=== PATIENT | male | born 1970 | race Caucasian/White ===

== ENCOUNTER 2023-03-08 10:02 | Emergency (ER) | payer MEDICARE, MEDICAID, SELFPAY ==
--- NOTE | 2023-03-08 10:14 | ED.ABDPAIN ---
HPI - Abdominal Pain General Chief Complaint: Skin/Abscess/Foreign Body Stated Complaint: bump on left hip Time Seen by Provider: 03/08/23 10:14 Source: patient Mode of arrival: ambulatory Limitations: no limitations History of Present Illness HPI narrative: 52 yo M presents with red bump to L hip for 1 wk. tender, no itching. states lymph node to L groin now enlarged. No other complaints today. all systems reviewed and negative except as noted above. Related Data Home Medications Medication Instructions Recorded Confirmed clozapine 100 mg tablet mg 03/08/23 clozapine 50 mg tablet mg 03/08/23 fenofibrate nanocrystallized 48 mg mg PO 03/08/23 tablet insulin glargine 100 unit/mL (3 unit subcut 03/08/23 mL) subcutaneous pen (Lantus Solostar U-100 Insulin) pantoprazole 40 mg tablet,delayed mg PO 03/08/23 release paroxetine HCl 30 mg tablet mg PO 03/08/23 simvastatin 40 mg tablet mg 03/08/23 Allergies Allergy/AdvReac Type Severity Reaction Status Date / Time No Known Allergies Allergy Verified 03/08/23 10:15 Review of Systems Review of Systems: CONSTITUTIONAL: Denies fever, chills, or sweats. EYES: Denies visual changes, redness, or discharge. ENT: Denies rhinorrhea, congestion, sore throat, or otalgia. CARDIOVASCULAR: Denies chest pain, palpitations, or edema. RESPIRATORY: Denies cough or dyspnea. GASTROINTESTINAL: Denies abdominal pain, nausea, vomiting, or diarrhea. GENITOURINARY: Denies dysuria or hematuria. SKIN: Denies rash or itching. reports red, swollen bump to L hip. MUSCULOSKELETAL: Denies back pain, joint pain, or myalgia. NEUROLOGIC: Denies headache, numbness, or weakness. PSYCHIATRIC: Denies anxiety or depression. All other systems reviewed are negative, except as documented in HPI. PMFSH Comments At time of signature, agree with nursing past medical, surgical, social and family history. There is no relevant family history pertinent to the presenting complaint. Exam Narrative: GENERAL: This is a well-nourished, well-developed patient, in no apparent distress. HEAD: normocephalic, atraumatic. EYES: PERRL. Sclera clear/white. Vision is grossly intact. EARS: External ears normal NOSE: External nose normal NECK: Neck supple, non-tender without lymphadenopathy, masses or thyromegaly. CARDIOVASCULAR: Regular rate and rhythm without murmurs, gallops, or rubs. RESPIRATORY: Clear to auscultation. Breath sounds equal bilaterally. No wheezes, rales, or rhonchi. SKIN: warm, Dry, intact with no suspicious lesions or rash, good texture and turgor. raised erythematous lesion to L lateral hip and right anterior upper thigh. Approx. 2 cm diameter. no fluctuance or warmth. L inguinal lymph node enlarged, nontender NEURO: awake, alert, and oriented to person, place and time. There were no obvious focal neurologic abnormalities. EXTREMITIES: No joint tenderness, effusion, or edema noted. Course Course Level of Care: Express Care Visit Vital Signs Vital signs: Vital Signs Temperature 36.8 C 03/08/23 10:16 Pulse Rate 105 H 03/08/23 10:16 Respiratory Rate 18 03/08/23 10:16 Blood Pressure 117/79 03/08/23 10:16 Pulse Oximetry 97 03/08/23 10:16 Oxygen Delivery Room Air 03/08/23 10:16 Temperature 36.8 C 03/08/23 10:16 Pulse Rate 105 H 03/08/23 10:16 Respiratory Rate 18 03/08/23 10:16 Blood Pressure 117/79 03/08/23 10:16 Pulse Oximetry 97 03/08/23 10:16 Oxygen Delivery Room Air 03/08/23 10:16 Reviewed MDM - Abdominal Pain MDM Narrative Medical decision making narrative: Patient is aware of diagnosis, understands and agrees to treatment plan. Anticipatory guidance given. Patient agrees to follow-up as directed and is aware of reasons to seek care at the emergency department. Portions of this record may have been created with voice recognition software Discharge Plan Discharge Clinical Impression: Skin lesion, infected
[2023-03-08 10:16] VITALS: BP 117/79; PULSE 105; RESP 18; TEMP 36.8; O2SAT 97
== END 2023-03-08 10:29 | disposition home or self-care (01) ==
PROVIDERS: Emergency Provider Nurse Practitioner Family; PCP Internal Medicine
DX: L08.9 Local infection of the skin and subcutaneous tissue, unspecified (principal); L98.9 Disorder of the skin and subcutaneous tissue, unspecified; E78.00 Pure hypercholesterolemia, unspecified; K21.9 Gastro-esophageal reflux disease without esophagitis; E11.9 Type 2 diabetes mellitus without complications; L40.9 Psoriasis, unspecified; F17.200 Nicotine dependence, unspecified, uncomplicated
CPT/HCPCS: 99213; G0463

== ENCOUNTER 2023-05-02 09:17 | Emergency (ER) | payer MEDICARE, MEDICAID, SELFPAY ==
--- NOTE | 2023-05-02 09:20 | ED.MALEGU ---
HPI - Male Genitourinary General Chief complaint: Urogenital-Male Stated complaint: urinary issue Time Seen by Provider: 05/02/23 09:35 Source: patient, RN notes reviewed and old records reviewed Mode of arrival: ambulatory Limitations: no limitations History of Present Illness HPI Narrative: 52-year-old male with history of diabetes presents to the [facility] with suprapubic discomfort. Denies pain, burning with urination, penile discharge, testicular pain. Pain is not reproducible. Patient states ?I am worried about a urinary tract infection or bladder cancer. ? Patient it is has a family history of bladder cancer, explained to patient that is not something we can not rule out here. States he has an appointment next week with his primary care provider Patient is a diabetic, has not checked his blood sugars in several days. States he has been eating a lot of sweets lately Symptoms for 1 and half to 2 weeks Onset (ago): week(s) (1.5-2) Associated symptoms: Reports denies other symptoms Related Data Home Medications Medication Instructions Recorded Confirmed clozapine 100 mg tablet 100 mg PO DAILY 03/08/23 05/02/23 clozapine 50 mg tablet 50 mg PO DAILY 03/08/23 05/02/23 fenofibrate nanocrystallized 48 mg 48 mg PO DAILY 03/08/23 05/02/23 tablet insulin glargine 100 unit/mL (3 65 unit subcut DAILY 03/08/23 05/02/23 mL) subcutaneous pen (Lantus Solostar U-100 Insulin) pantoprazole 40 mg tablet,delayed 40 mg PO DAILY 03/08/23 05/02/23 release paroxetine HCl 30 mg tablet 30 mg PO DAILY 03/08/23 05/02/23 simvastatin 40 mg tablet 40 mg PO DAILY 03/08/23 05/02/23 Allergies Allergy/AdvReac Type Severity Reaction Status Date / Time No Known Allergies Allergy Verified 05/02/23 09:22 Review of Systems Review of Systems: All systems reviewed & are unremarkable except as noted in HPI and below Constitutional: Constitutional: Reports no additional constitutional complaints Eyes: Eyes: Reports no additional eye complaints ENT: Reports system reviewed and no additional complaints, except as documented Cardiovascular: Cardiovascular: Reports no additional cardiovascular complaints, Denies chest pain and Denies dyspnea Respiratory: Respiratory: Reports no additional respiratory complaints, Denies chest congestion, Denies cough and Denies dyspnea Gastrointestinal: Gastrointestinal: Reports as per HPI, Denies abdominal pain, Denies diarrhea, Denies nausea and Denies vomiting Genitourinary: Genitourinary: Reports no additional male genitourinary complaints Musculoskeletal: Musculoskeletal: Reports no additional musculoskeletal complaints Integumentary/Breasts: Skin/Breast: Reports system reviewed and no additional complaints, except as docu Neurologic: Reports system reviewed and no additional complaints, except as documented Psychiatric: Psychiatric: Reports no additional psychiatric complaints Allergic/Immunologic: Allergic/Immunologic: Reports no additional allergic/immunologic complaints PMFSH Comments At the time of my signature, I reviewed and agree with the nursing past medical, surgical, social, and family history. There is no relevant family history pertinent to the patient complaint. Exam Const: General: cooperative, healthy appearing, comfortable, no acute distress, well developed, alert and well nourished Nutritional Appearance: well nourished Orientation/consciousness: patient oriented x3 Limitations: no limitations HENMT: Head: normal to inspection Ears: hearing grossly normal bilaterally and external ears normal Face/Nose/Sinus: Normal external nose present, Normal nares present, Normal nasal mucous membranes and turbinates present, normal facial exam and face symmetric Face and sinus: normal facial exam and face symmetric Eyes: General: appearance normal, both eyes and all related structures Alignment and Position: alignment normal Periorbital: periorbital findings normal Pupils: Equal, round
[2023-05-02 09:33] VITALS: BP 121/77; PULSE 100; RESP 16; TEMP 37; O2SAT 99
[2023-05-02 10:02] LABS: Glucose Point of Care 330 mg/dl (65-105)
== END 2023-05-02 10:14 | disposition left against medical advice (07) ==
PROVIDERS: Emergency Provider Nurse Practitioner; PCP Internal Medicine
DX: E11.65 Type 2 diabetes mellitus with hyperglycemia (principal); R10.2 Pelvic and perineal pain; R35.0 Frequency of micturition; Z79.4 Long term (current) use of insulin; Z79.899 Other long term (current) drug therapy
CPT/HCPCS: 81003; 82948; 99212; G0463